=== PATIENT | female | born 1940 | race Asian ===

== ENCOUNTER 2016-11-20 10:31 | Emergency (ER) | payer MEDICARE, OTHER ==
[~2016-11-20] VITALS: Ht 157.5 cm; Wt 57.0 kg
[~2016-11-20 10:31] MED LIST: ATOR20TA17; IBUP400T22 PO; METO10TA96; RANI150C11 PO; TRIA1CAP44; ULT50 PO
[2016-11-20 10:57] VITALS: Ht 157.5 cm; Wt 57.0 kg
--- NOTE | 2016-11-20 12:36 | RADRPT ---
PROCEDURE: CT soft tissue neck without contrast CLINICAL INDICATION: Possible foreign body, fish bone since November 03 TECHNIQUE: Transaxial images were made through the neck on a multi-slice scanner without intraveno us contrast administration. Coronal and sagittal images were subsequently reformatted. One or more of the following dose reduction techniques were used: - Automated exposure control. - Adjustment of the mA and/or kV according to patient size. - Use of iterative reconstruction technique. Radiation dose: CTDIvol = 7.85 mGy; DLP = 224.77 mGy-cm. COMPARISON: None FINDINGS: Mild inflammatory changes seen at the inferior maxillary sinuses bilaterally. The mastoid air cells are well-aerated. The tongue base appears unremarkable. The oropharynx and nasopharynx appear unrem arkable. The epiglottis is not edematous. There is a linear calcific density measuring approximatel y 1 cm in length located within the right vallecula suspicious for a foreign body and certainly not an compatible with a fish bone. The larynx appears unremarkable. The trachea is patent. The subma ndibular and parotid glands appear normal. The thyroid appears unremarkable. No pathologically enla rged nodes are identified. There is slight atherosclerotic vascular calcification. Pleural parench ymal scarring is seen at the pulmonary apices. Moderate degenerative spine changes are evident. IMPRESSION: 1. There is a linear calcific density measuring approximately 1 cm in length located within the rig ht vallecula, not incompatible with a fish bone foreign body. 2. No abscess is identified. 3. Mild inflammatory changes involving the inferior maxillary sinuses bilaterally. 4. Pleural parenchymal scarring at the pulmonary apices. 5. Moderate degenerative spine changes seen diffusely. Findings of fish bone foreign body were telephoned by Morales Whittaker MD to Ana M Mckenzie on 11/10 a 1230 hours. Physician Jose Enrique Date Time Electronically viewed and signed by Physician Jose Enrique on 11/20/2016 12:35 RH/
--- NOTE | 2016-11-20 16:41 | ERD ---
DATE OF SERVICE: 11/20/2016 HISTORY OF PRESENT ILLNESS: The patient is a 76-year-old female coming in complaining of a possible fishbone stuck in the right side of her throat. Patient states she noticed this on 11/03/2016. Sh e states that the time she is taking pain medications and muscle relaxers and she did not notice the pain. She states that over the last few days it has gotten worse. She is unable to see her primar y doctor. PAST MEDICAL HISTORY: History of hypertension, hypercholesterolemia and GERD. ALLERGIES: SULFA. HOSPITALIZATIONS: Denies. SOCIAL HISTORY: Smokes 3 cigarettes a day. REVIEW OF SYSTEMS: A 12-point review of systems was done. Refer to HPI for positives, all other sy stems negative. PHYSICAL EXAMINATION VITAL SIGNS: Temperature is 98.2, pulse 77, blood pressure 132/82, respiratory 18, O2 saturation 99 % on room air. Pain intensity of 4/10. GENERAL: The patient is well-appearing, well-nourished, no acute distress. HEENT: Atraumatic. Conjunctivae are pink. Pupils equal, round, and reactive to light. There is no s cleral icterus. Tympanic membranes clear bilaterally. Oropharynx clear. No nystagmus or photophobia . NECK: C-spine is soft and supple. There is no meningismus. There is no cervical lymphadenopathy. No JVD. No bruits. No goiter. CHEST: Clear to auscultation bilaterally. There are no rales, wheezes or rhonchi. HEART: Regular rate and rhythm. No murmurs, clicks, rubs or gallops. No S3 or S4. ABDOMEN: Soft, nontender and nondistended. Good bowel sounds. No rebound or guarding. No gross alberto tonitis. No gross organomegaly or masses. No Petty sign or McBurney point tenderness. SKIN: There is no apparent rash or petechia. The skin is warm and dry. EMERGENCY ROOM COURSE: The patient had a CT neck soft tissue without contrast which showed: 1. Linear calcific density measuring approximately 1 cm in length located within the right vallecul a not incompatible with a fishbone foreign body. 2. No abscess identified. 3. Mild inflammatory changes involving the inferior maxillary sinuses bilaterally. 4. Pleural parenchymal scarring at the pulmonary apices. 2. Moderate degenerative spine changes seen diffusely. This case was discussed with Dr. Belle, the ENT vendor relationship manager. Dr. Belle recommended patient to keny warren up in his office tomorrow at 12:[address] for outpatient followu p. He did not feel there was an emergent reason for consult as the patient has had fish bone in her throat for 3 weeks. DIAGNOSIS: Foreign body not removed from the esophagus. MEDICAL DECISION MAKING: I have low suspicion for abscess formation. Low suspicion for sepsis. Juliana warren suspicion for a retropharyngeal abscess. Patient's exam is not concerning. Low suspicion for oth er emergent etiology at this time. DISCHARGE: The patient is discharged stable. The patient recommended to follow up with Dr. Belle as previously stated. The patient understood and complied. She is given information of arianna hernandez. All other questions answered at time of discharge. Discharge summary given at the time of depar ture. Patient given strict ER precautions. Dictated By: DARRELL SWIFT PA for HAILEY FLORES/KATHERINE Conf#: [id number] DID#: [id number]
== END 2016-11-20 13:52 | disposition home or self-care (01) ==
LOC: FTE 10:31
DX: T18.128A Food in esophagus causing other injury, initial encounter (principal); F17.210 Nicotine dependence, cigarettes, uncomplicated; I10 Essential (primary) hypertension; X58.XXXA Exposure to other specified factors, initial encounter; Y92.9 Unspecified place or not applicable
CPT/HCPCS: 70490